=== PATIENT | male | born 1970 | race Caucasian/White ===

== ENCOUNTER 2020-05-20 10:37 | Inpatient (IN) | payer OTHER ==
[~2020-05-20] VITALS: Ht 195.6 cm; Wt 98.5 kg
[~2020-05-20 10:37] MED LIST: ASPI81TA40 PO; LIB25 PO; MULT-1203 PO; PANT40TA PO
[2020-05-20 11:41] LABS: BASOPHILS % (AUTO) 0.9 % (0.0-5.0); EOSINOPHILS % (AUTO) 2.9 % (0.0-8.0); HEMATOCRIT 27.4 % (42-54); LYMPHOCYTES % (AUTO) 29.6 % (21.0-51.0); MEAN CORPUSCULAR HEMOGLOBIN 26.3 pg (27.0-33.0); MEAN CORPUSCULAR HGB CONC 32.5 g/dL (32.0-36.0); MEAN CORPUSCULAR VOLUME 80.8 fL (79-99); NEUTROPHILS % (AUTO) 50.4 % (40.0-77.0); PLATELET COUNT (AUTO) 92 K/uL (130-400); RED BLOOD CELL COUNT(AUTO) 3.39 MIL/uL (4.50-6.20); RED CELL DISTRIBUTION WIDTH 21.4 % (11.0-15.5); WHITE BLOOD COUNT (AUTO) 4.6 K/uL (4.8-10.8)
[2020-05-20 11:47] LABS: CREATININE 0.7 mg/dL (0.5-1.5); POTASSIUM 3.1 mmol/L (3.5-5.1)
[2020-05-20 11:51] LABS: INR 2.5 (0.85-1.15); PARTIAL THROMBOPLASTIN TIME 31.3 SEC (26.3-35.5); PROTHROMBIN TIME 26.1 SEC (9.6-11.6)
[2020-05-20] MEDS ORDERED: ALBUMIN (HUMAN) 25% 100 ML IV ONE (11:51)
[2020-05-20] MEDS ORDERED: PANTOPRAZOLE 40 MG/VIAL ONE (11:51)
[2020-05-20] MEDS ORDERED: CEFTRIAXONE SODIUM 2 GM VIAL ONE (11:51)
[2020-05-20 11:52] LABS: ALBUMIN 2.5 g/dL (3.5-5.0); BILIRUBIN,DIRECT 3.9 mg/dL (0.0-0.3); BILIRUBIN,TOTAL 5.8 mg/dL (0.2-1.0); TOTAL PROTEIN, SERUM 6.6 g/dL (6.0-8.3)
[2020-05-20] MEDS ORDERED: SODIUM CHLORIDE 0.9% 100 ML IV ONE (11:52)
[2020-05-20] MEDS ORDERED: ONDANSETRON HCL 4 MG/2 ML VIAL IV PRN (16:30)
[2020-05-20] MEDS ORDERED: ACETAMINOPHEN 325 MG TAB PO PRN ×2 (16:30)
--- NOTE | 2020-05-20 17:50 | NUR ---
HX GERD Addendum: 05/20/20 at 1824 by DALLAS MCFARLAND RN RN Amended: Links added.
[2020-05-20 17:53] VITALS: BP 117/78
[2020-05-20] MEDS ORDERED: PEG 3350/NA SULF,BICARB,CL/KCL 4000 ML SOLN PO SCH (18:00)
[2020-05-20 20:01] VITALS: BP 94/62
[2020-05-20] MEDS ORDERED: PANTOPRAZOLE SODIUM 40 MG TABLET.DR PO SCH (21:00)
[2020-05-20] MEDS ORDERED: POTASSIUM CHLORIDE 10MEQ/100ML 100 ML IV PRN (23:45)
[2020-05-20] MEDS ORDERED: LIDOCAINE HCL-MPF 1% 2ML VIAL IV PRN (23:45)
[2020-05-21] VITALS (18 sets, daily range): BP systolic 94–114; BP diastolic 52–87
[2020-05-21] MEDS ORDERED: MAGNESIUM 2GM PREMIX 50ML 50 ML IV PRN
[2020-05-21 08:01] LABS: BASOPHILS % (AUTO) 0.6 % (0.0-5.0); EOSINOPHILS % (AUTO) 2.6 % (0.0-8.0); HEMATOCRIT 22.6 % (42-54); MEAN CORPUSCULAR HEMOGLOBIN 26.5 pg (27.0-33.0); MEAN CORPUSCULAR HGB CONC 32.3 g/dL (32.0-36.0); MEAN CORPUSCULAR VOLUME 82.2 fL (79-99); MONOCYTES % (AUTO) 18.3 % (3.0-13.0); NEUTROPHILS % (AUTO) 52.9 % (40.0-77.0); PLATELET COUNT (AUTO) 69 K/uL (130-400); RED BLOOD CELL COUNT(AUTO) 2.75 MIL/uL (4.50-6.20); RED CELL DISTRIBUTION WIDTH 21.8 % (11.0-15.5); WHITE BLOOD COUNT (AUTO) 3.1 K/uL (4.8-10.8)
[2020-05-21 08:18] LABS: INR 1.96 (0.85-1.15); PROTHROMBIN TIME 20.6 SEC (9.6-11.6)
[2020-05-21] MEDS ORDERED: PANTOPRAZOLE 40 MG/VIAL IVP SCH (09:00)
[2020-05-21] MEDS ORDERED: LACTULOSE 20 GM/30 ML UDCUP PO SCH (09:00)
[2020-05-21 09:09] LABS: ALBUMIN 2.6 g/dL (3.5-5.0); CREATININE 0.7 mg/dL (0.5-1.5); MAGNESIUM 1.8 mg/dL (1.80-2.40); POTASSIUM 3.7 mmol/L (3.5-5.1); TOTAL PROTEIN, SERUM 6.2 g/dL (6.0-8.3)
[2020-05-21] MEDS ORDERED: LIDOCAINE HCL-MPF 2% 5ML VIAL ONE (11:04)
[2020-05-21] MEDS ORDERED: PROPOFOL 10 MG/ML 20ML VIAL IV ONE ×2 (11:04)
[2020-05-21] MEDS ORDERED: SODIUM CHLORIDE 0.9% 10 ML VIAL ONE (11:10)
[2020-05-21] MEDS ORDERED: PHENYLEPHRINE HCL 10 MG/ML 1ML VIAL IV ONE (11:10)
--- NOTE | 2020-05-21 13:21 | NUR ---
RETURNED TO THE ROOM IN GOOD CONDITION WITH NO CURRENT COMPLAINTS, ABD US COMPLETE, PT HAS BEGUN CLR LIQ DIET. MOTHER AT BEDSIDE. PT IS CALM AND PLEASANT WITH NO RESP DIFFICULTY OR DISTRESS, HOB ELEVATED APPROX. 45 DEGREES. NO CURRENT C/O PAIN
--- NOTE | 2020-05-21 14:01 | NUR ---
SPOKE WITH DR VU REGARDING PTS WISHES TO LEAVE TODAY. STATED SHE WILL LOOK AT THE RESULTS OF THE ABD US AND SPEAK WITH THE PATIENT. PT STATES UNDERSTANDING
[2020-05-21] MEDS ORDERED: FOLI0.4T2 PO (14:52)
[2020-05-21] MEDS ORDERED: FERR325T22 PO (14:52)
--- NOTE | 2020-05-21 15:32 | NUR ---
PT DISCHARGED TO HOME, STATES UNDERSTANDING OF DISMISSAL INSTRUCTIONS PER DR Jaquez. PT REMOVED HIS OWN IV(S), DR MCKEE NOTIFIED OF PTS DISCHARGE WITH CONINUED HOME MEDS AND ADDITIONAL FOLIC ACID 1MG DAILY AND FERROUS SULFATE 325MG DAILY. PT DISCHARGED BY W/C IN GOOD CONDITION ACCOMPANIED BY HIS MOTHER.
--- NOTE | 2020-05-21 16:00 | NUR ---
INITIAL: Met w pt this afternoon to discuss dcp. Pt mentions that he lives alone and his mother lives next door. Prior to admission pt was independent w ambulation and ADLs. Pt does not have any DME or receive services. Pt mentions he feels safe and comfortable to [place] low income packet provided to pt. No further needs identified at this time. Addendum: 05/21/20 at 1719 by NYDIA POTTS CM Amended: Links added.
== END 2020-05-21 15:00 | disposition home or self-care (01) | DRG 432 ==
LOC: EDH 10:37 → EDHIP 10:38 → 3CH 17:25
PROVIDERS: ADMIT Hospitalist; ATTEND Hospitalist
PROC: 30233K1 Transfusion of Nonautologous Frozen Plasma into Peripheral Vein, Percutaneous Approach (ICD-10-PCS; principal; 2020-05-21)
PROC: 0DJ08ZZ Inspection of Upper Intestinal Tract, Via Natural or Artificial Opening Endoscopic (ICD-10-PCS; 2020-05-21)
PROC: 0DJD8ZZ Inspection of Lower Intestinal Tract, Via Natural or Artificial Opening Endoscopic (ICD-10-PCS; 2020-05-21)
DX: K70.30 Alcoholic cirrhosis of liver without ascites (principal); I85.01 Esophageal varices with bleeding; K57.91 Diverticulosis of intestine, part unspecified, without perforation or abscess with bleeding; E44.0 Moderate protein-calorie malnutrition; K76.6 Portal hypertension; D69.6 Thrombocytopenia, unspecified; K29.00 Acute gastritis without bleeding; Z20.828 Contact with and (suspected) exposure to other viral communicable diseases; K31.89 Other diseases of stomach and duodenum; Z68.25 Body mass index [BMI] 25.0-25.9, adult; I86.8 Varicose veins of other specified sites; K64.8 Other hemorrhoids
CPT/HCPCS: 36415; 36430; 43235; 45378; 76700; 80048; 80053; 80076; 82140; 82550; 83605; 83690; 83735; 84484; 85025; 85610; 85730; 86850; 86900; 86901; 86927; 87040; 87426; 93005; A4606; C9113; G0378; J0696; J2370; J2704; J3475; J3490; J7030; P9017; P9046; U0003